=== PATIENT | male | born 1995 | race Caucasian/White ===

== ENCOUNTER 2025-06-24 00:01 | Emergency (ER) | payer BC, OTHER ==
[~2025-06-24] VITALS: Ht 177.8 cm; Wt 70.9 kg
[~2025-06-24 00:01] MED LIST: IBUP-1984 PO; NO HOME MEDS
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
[2025-06-24 00:35] VITALS: BP 125/82; PULSE 93; RESP 14; TEMP 98.5; O2SAT 97
== END 2025-06-24 00:37 ==
LOC: ER 00:02
DX: Z00.00 Encounter for general adult medical examination without abnormal findings (principal); Z79.899 Other long term (current) drug therapy; V43.52XA Car driver injured in collision with other type car in traffic accident, initial encounter; Y93.89 Activity, other specified; Y92.89 Other specified places as the place of occurrence of the external cause; Y99.8 Other external cause status
CPT/HCPCS: 99283